=== PATIENT | female | born 1990 ===

== ENCOUNTER 2018-02-22 16:35 | Inpatient (IN) | payer OTHER ==
[~2018-02-22] VITALS: Ht 160 cm; Wt 170.0 kg
[2018-02-22 17:09] LABS: Hematocrit 39.8 % (33.0-51.0); Hemoglobin 12.5 g/dL (11.5-16.0); Mean Corpuscular HGB 25.9 pg (26.0-34.0); Mean Corpuscular HGB Conc 31.4 g/dL (31.5-36.5); Mean Corpuscular Volume 82 fL (80-100); Platelet Count 284 K/mm3 (150-400); RDW Standard Deviation 48.2 fL (35.1-46.3); Red Blood Cell Count 4.83 M/mm3 (3.80-5.20); White Blood Cell Count 25.72 K/mm3 (4.00-11.30)
[2018-02-22 17:39] LABS: BAND PERCENT MAN 12 % (0-8); BASOPHILS PERCENT MAN 0 % (0-2); EOSINOPHILS PERCENT MAN 0 % (0-6); LYMPHOCYTES ABSOLUTE MAN 1.54 K/mm3 (0.84-5.20); LYMPHOCYTES PERCENT MAN 6 % (21-46); MONOCYTES ABSOLUTE MAN 0.51 K/mm3 (0.16-1.47); MONOCYTES PERCENT MAN 2 % (4-13); NEUTROPHILS ABSOLUTE MAN 23.66 K/mm3 (1.96-9.15); SEG NEUTROPHILS PERCENT MAN 80 % (41-73); TOTAL CELLS COUNTED 100
[2018-02-22 17:44] LABS: PCO2 Cord - Arterial 48.1 mmHg (40-50); PO2 Cord - Arterial 18.4 mmHg (16-20); pH Cord - Arterial 7.26 (7.28-7.35)
[2018-02-22 17:46] LABS: PCO2 Cord - Venous 38.8 mmHg (40-50); PO2 Cord - Venous 29.6 mmHg (28-32); pH Umbilical Cord - Venous 7.29 (7.26-7.35)
[2018-02-23 05:49] LABS: Hemoglobin 6.5 g/dL (11.5-16.0); Mean Corpuscular HGB 26.2 pg (26.0-34.0); Mean Corpuscular HGB Conc 32.5 g/dL (31.5-36.5); Mean Corpuscular Volume 81 fL (80-100); Platelet Count 197 K/mm3 (150-400); RDW Coefficient Variation 15.9 % (11.7-14.2); RDW Standard Deviation 46.7 fL (35.1-46.3); Red Blood Cell Count 2.48 M/mm3 (3.80-5.20); White Blood Cell Count 24.34 K/mm3 (4.00-11.30)
[2018-02-23 12:33] LABS: BASOPHILS ABSOLUTE AUTO 0.03 K/mm3 (0.00-0.23); BASOPHILS PERCENT AUTO 0 % (0-2); EOSINOPHILS ABSOLUTE AUTO 0.02 K/mm3 (0.00-0.68); EOSINOPHILS PERCENT AUTO 0 % (0-6); Hematocrit 18.6 % (33.0-51.0); IMMATURE GRAN ABSOLUTE AUTO 0.08 K/mm3 (0.00-0.10); IMMATURE GRAN PERCENT AUTO 0 % (0-1); LYMPHOCYTES PERCENT AUTO 6 % (21-46); MONOCYTES ABSOLUTE AUTO 1.51 K/mm3 (0.16-1.47); MONOCYTES PERCENT AUTO 7 % (4-13); Mean Corpuscular HGB 26.1 pg (26.0-34.0); Mean Corpuscular HGB Conc 32.3 g/dL (31.5-36.5); Mean Corpuscular Volume 81 fL (80-100); Mean Platelet Volume 11.9 fL (9.1-12.4); NEUTROPHILS ABSOLUTE AUTO 19.79 K/mm3 (1.96-9.15); NEUTROPHILS PERCENT AUTO 87 % (41-73); Platelet Count 216 K/mm3 (150-400); RDW Standard Deviation 46.5 fL (35.1-46.3); White Blood Cell Count 22.83 K/mm3 (4.00-11.30)
[2018-02-24 05:24] LABS: BASOPHILS ABSOLUTE AUTO 0.03 K/mm3 (0.00-0.23); BASOPHILS PERCENT AUTO 0 % (0-2); EOSINOPHILS ABSOLUTE AUTO 0.17 K/mm3 (0.00-0.68); EOSINOPHILS PERCENT AUTO 1 % (0-6); IMMATURE GRAN ABSOLUTE AUTO 0.24 K/mm3 (0.00-0.10); IMMATURE GRAN PERCENT AUTO 1 % (0-1); LYMPHOCYTES ABSOLUTE AUTO 2.14 K/mm3 (0.84-5.20); LYMPHOCYTES PERCENT AUTO 10 % (21-46); MONOCYTES ABSOLUTE AUTO 1.41 K/mm3 (0.16-1.47); MONOCYTES PERCENT AUTO 7 % (4-13); Mean Corpuscular HGB 25.6 pg (26.0-34.0); Mean Corpuscular Volume 83 fL (80-100); NEUTROPHILS ABSOLUTE AUTO 17.22 K/mm3 (1.96-9.15); NEUTROPHILS PERCENT AUTO 81 % (41-73); Platelet Count 196 K/mm3 (150-400); RDW Coefficient Variation 16.2 % (11.7-14.2); RDW Standard Deviation 49.1 fL (35.1-46.3); Red Blood Cell Count 2.11 M/mm3 (3.80-5.20); White Blood Cell Count 21.21 K/mm3 (4.00-11.30)
[2018-02-24 05:33] LABS: Hematocrit 17.4 % (33.0-51.0); Hemoglobin 5.4 g/dL (11.5-16.0)
[2018-02-24 13:35] LABS: Hematocrit 24.5 % (33.0-51.0); Mean Corpuscular HGB 26.8 pg (26.0-34.0); Mean Corpuscular HGB Conc 32.7 g/dL (31.5-36.5); Mean Corpuscular Volume 82 fL (80-100); Mean Platelet Volume 10.7 fL (9.1-12.4); Platelet Count 207 K/mm3 (150-400); RDW Coefficient Variation 15.9 % (11.7-14.2); Red Blood Cell Count 2.98 M/mm3 (3.80-5.20); White Blood Cell Count 23.13 K/mm3 (4.00-11.30)
[2018-02-24 13:55] LABS: BAND PERCENT MAN 12 % (0-8); BASOPHILS ABSOLUTE MAN 0.46 K/mm3 (0.00-0.23); BASOPHILS PERCENT MAN 2 % (0-2); EOSINOPHILS PERCENT MAN 0 % (0-6); LYMPHOCYTES ABSOLUTE MAN 2.08 K/mm3 (0.84-5.20); LYMPHOCYTES PERCENT MAN 9 % (21-46); MONOCYTES ABSOLUTE MAN 0.23 K/mm3 (0.16-1.47); MONOCYTES PERCENT MAN 1 % (4-13); NEUTROPHILS ABSOLUTE MAN 20.35 K/mm3 (1.96-9.15); SEG NEUTROPHILS PERCENT MAN 76 % (41-73); TOTAL CELLS COUNTED 100
== END 2018-02-25 17:00 | disposition home or self-care (01) | DRG 765 ==
LOC: OBS 16:35 → BC 16:35 → OBS 16:43 → BC 16:45
PROVIDERS: Obstetrics & Gynecology
PROC: 10D00Z1 Extraction of Products of Conception, Low, Open Approach (ICD-10-PCS; principal; 2018-02-22 16:45)
PROC: 30233N1 Transfusion of Nonautologous Red Blood Cells into Peripheral Vein, Percutaneous Approach (ICD-10-PCS; 2018-02-24)
DX: O32.1XX0 Maternal care for breech presentation, not applicable or unspecified (principal); D62 Acute posthemorrhagic anemia; O90.81 Anemia of the puerperium; Z3A.42 42 weeks gestation of pregnancy; Z37.0 Single live birth; O63.1 Prolonged second stage (of labor); Z91.048 Other nonmedicinal substance allergy status; O34.03 Maternal care for unspecified congenital malformation of uterus, third trimester; Q51.3 Bicornate uterus
CPT/HCPCS: 36415; 36430; 82803; 85025; 85027; 86850; 86900; 86901; 86923; J0330; J0690; J1100; J1885; J2370; J2405; J2590; J2710; J2765; J3010; J7030; J7120; P9016

== ENCOUNTER → 2020-02-09 | Outpatient (CLI) | payer OTHER | END | disposition home or self-care (01) | LOC: LAB 16:02 → LAB SHORT 16:02 | PROVIDERS: Obstetrics & Gynecology | DX: N88.9 Noninflammatory disorder of cervix uteri, unspecified (principal) | CPT/HCPCS: 87624; 87625; G0123 ==

== ENCOUNTER → 2020-02-21 | Outpatient (CLI) | payer OTHER ==
[2020-02-22 11:47] LABS: Candida species (DNA Probe) Negative (NEGATIVE); G. vaginalis (DNA Probe) Positive (NEGATIVE); T. vaginalis (DNA Probe) Negative (NEGATIVE)
[2020-02-22 23:10] LABS: CHLAMYDIA TRACHOMATIS, NAA Positive (Negative); NEISSERIA GONORRHOEAE, NAA Negative (Negative)
== END | disposition home or self-care (01) ==
LOC: LAB 09:14 → LAB SHORT 09:14
PROVIDERS: Obstetrics & Gynecology
DX: Z11.3 Encounter for screening for infections with a predominantly sexual mode of transmission (principal); N76.0 Acute vaginitis
CPT/HCPCS: 87480; 87491; 87510; 87591; 87660

== ENCOUNTER → 2020-02-21 | Outpatient (CLI) | payer OTHER | END | disposition home or self-care (01) | LOC: PLD 13:40 → LAB SHORT 13:40 | DX: A63.0 Anogenital (venereal) warts (principal) | CPT/HCPCS: 88305 ==

== ENCOUNTER 2020-06-19 15:03 | Inpatient (IN) | payer OTHER ==
[~2020-06-19] VITALS: Ht 160 cm; Wt 72.6 kg
[2020-06-22] MEDS ORDERED: PRENATAL TABLE1 EAC2 (09:22)
[2020-06-22] MEDS ORDERED: FERSU300 PO (09:22)
[2020-06-22 09:36] LABS: BASOPHILS ABSOLUTE AUTO 0.04 K/mm3 (0.00-0.23); BASOPHILS PERCENT AUTO 0 % (0-2); EOSINOPHILS ABSOLUTE AUTO 0.24 K/mm3 (0.00-0.68); EOSINOPHILS PERCENT AUTO 2 % (0-6); Hematocrit 32.9 % (33.0-51.0); Hemoglobin 10.1 g/dL (11.5-16.0); IMMATURE GRAN ABSOLUTE AUTO 0.15 K/mm3 (0.00-0.10); IMMATURE GRAN PERCENT AUTO 2 % (0-1); LYMPHOCYTES ABSOLUTE AUTO 1.37 K/mm3 (0.84-5.20); LYMPHOCYTES PERCENT AUTO 13 % (21-46); MONOCYTES ABSOLUTE AUTO 1.06 K/mm3 (0.16-1.47); MONOCYTES PERCENT AUTO 10 % (4-13); Mean Corpuscular HGB 24.5 pg (26.0-34.0); Mean Corpuscular HGB Conc 30.7 g/dL (31.5-36.5); Mean Corpuscular Volume 80 fL (80-100); Mean Platelet Volume 10.3 fL (9.1-12.4); NEUTROPHILS ABSOLUTE AUTO 7.34 K/mm3 (1.96-9.15); NEUTROPHILS PERCENT AUTO 72 % (41-73); Platelet Count 217 K/mm3 (150-400); RDW Coefficient Variation 14.3 % (11.7-14.2); Red Blood Cell Count 4.13 M/mm3 (3.80-5.20)
--- NOTE | 2020-06-22 10:56 | NUR ---
06/22/20 1056 Alia Sharpe 1044 DELIVERY VIABLE FEMALE INFANT WEIGHT [id number], 8# 5 OZ, APGARS 9/9, HEAD 14 INCHES, CHEST 14 INCHES, LENGTH 21 INCHES, UMBILICAL CORD BLOOD COLLECTED FOR TYPE AND RH, RIGHT AND LEFT FALLOPIAN TUBES SENT TO PATHOLOGY
[2020-06-23 06:30] LABS: Hematocrit 22.9 % (33.0-51.0); Hemoglobin 7.1 g/dL (11.5-16.0); Mean Corpuscular Volume 81 fL (80-100); Mean Platelet Volume 10.6 fL (9.1-12.4); Platelet Count 204 K/mm3 (150-400); RDW Coefficient Variation 14.6 % (11.7-14.2); RDW Standard Deviation 42.2 fL (35.1-46.3); Red Blood Cell Count 2.84 M/mm3 (3.80-5.20); White Blood Cell Count 15.04 K/mm3 (4.00-11.30)
--- NOTE | 2020-06-23 13:27 | NUR ---
PT REPORTS DOING WELL. DENIES NEEDING PAIN MEDICATION, PT ENCORUAGED TO TRY TO VOID BY 1500. PT DOESNT FEEL URGE TO VOID, PT WAS SLEEPING, RN WOKE PT UP FOR VS.
[2020-06-23] MEDS ORDERED: IBUP800 PO (17:24)
[2020-06-23] MEDS ORDERED: ROXYBOND5 MG PO (17:25)
== END 2020-06-24 13:13 | disposition home or self-care (01) | DRG 785 ==
LOC: BC 06-22 08:42
PROVIDERS: ADMIT Obstetrics & Gynecology
PROC: 10D00Z1 Extraction of Products of Conception, Low, Open Approach (ICD-10-PCS; principal; 2020-06-22 10:15)
PROC: 0UT70ZZ Resection of Bilateral Fallopian Tubes, Open Approach (ICD-10-PCS; 2020-06-22 10:15)
DX: O32.1XX0 Maternal care for breech presentation, not applicable or unspecified (principal); O34.211 Maternal care for low transverse scar from previous cesarean delivery; O34.03 Maternal care for unspecified congenital malformation of uterus, third trimester; Q51.3 Bicornate uterus; Z3A.39 39 weeks gestation of pregnancy; Z37.0 Single live birth; Z30.2 Encounter for sterilization; O99.02 Anemia complicating childbirth; D64.9 Anemia, unspecified
CPT/HCPCS: 36415; 85025; 85027; 86850; 86900; 86901; 88302; J0690; J1885; J2370; J2405; J2590; J2704; J2765; J3010; J3430; J7120

== ENCOUNTER → 2020-09-04 | Outpatient (CLI) | payer OTHER ==
[~2020-09-04] MED LIST: FERSU300 PO; IBUP800 PO; PRENATAL TABLE1 EAC2; ROXYBOND5 MG PO
[2020-09-05 16:11] LABS: HPV 16 Positive (Negative); HPV 18 Negative (Negative); HPV OTHER HR TYPES Negative (Negative)
== END | disposition home or self-care (01) ==
LOC: PLD 09:15 → LAB SHORT 09:15
PROVIDERS: Obstetrics & Gynecology
DX: R87.619 Unspecified abnormal cytological findings in specimens from cervix uteri (principal)
CPT/HCPCS: 87624; 87625; 88142

== ENCOUNTER → 2024-08-11 | Outpatient (CLI) | payer OTHER ==
[2024-08-13 22:35] LABS: C. TRACHOMATIS BY TMA,THINPREP Negative (Negative); N. GONORRHOEAE BY TMA,THINPREP Negative (Negative); SPECIMEN SOURCE Cervical
== END ==
LOC: LAB SHORT 16:47 → LAB 16:47
PROVIDERS: Advanced Practice Midwife
DX: Z11.3 Encounter for screening for infections with a predominantly sexual mode of transmission (principal); Z01.419 Encounter for gynecological examination (general) (routine) without abnormal findings
CPT/HCPCS: 87491; 87591